=== PATIENT | female | born 1965 | race Caucasian/White ===

== ENCOUNTER → 2016-12-18 | Outpatient (CLI) | payer OTHER ==
[~2016-12-18] MED LIST: HCTZ OR; HYDROCHLOROTHIA25 M1 PO; INDOCIN25 MG PO; INDOMETHACIN50 MG PO; METHYLPRED DP4 MG PO; TYLENOL ES500 M1 PO; TYLENOL W/CODEI1 TA2 PO; [UNRECOGNIZED DRUG - REMARK] OR
--- NOTE | 2016-12-18 11:46 | RADIOLOGY REPORT PS360 ---
[id number] [id number] COMPARISON: PA and lateral chest 06/24/2014 HISTORY: Left chest wall pain TECHNIQUE: PA chest and oblique views left RIBS FINDINGS: The lung maria are well expanded and appear clear of infiltrate. There is no pneumothorax. There is a calcified granuloma right lower lobe all of the left ribs 1 through 12 are visualized and appear intact with no fracture seen. IMPRESSION: Grossly negative PA chest and left RIBS
== END ==
LOC: RAD 11:06
DX: R07.81 Pleurodynia (principal)